=== PATIENT | female | born 1980 | race Caucasian/White ===

== ENCOUNTER → 2017-08-27 | Outpatient (CLI) | payer BC ==
--- NOTE | 2017-08-28 07:42 | RADIOLOGY REPORT (SQ) ---
EXAM DESCRIPTION: MRI RT LOWER EXTREMITY WITHOUT COMPLETED DATE/TIME: 08/27/2017 4:59 pm REASON FOR STUDY: SPONTANEOUS RUPTURE OF FLEXOR TENDONS RT ANKLE FOOT M66.371 SPONTANEOUS RUPTURE O F FLEXOR TENDONS, RIGHT ANKLE A COMPARISON: Right ankle films 11/28/2013 TECHNIQUE: Right ankle images acquired and stored on PACS. Multiplanar images include fat sensitive sequences as T1, fluid sensitive sequences as FST2/STIR, cartilage sensitive sequences as FSPD, and g radient echo sequences. LIMITATIONS: There is mild metallic artifact along the distal medial malleolus from remote prior elvis dware and removal. There is artifact throughout the distal fibula from a fixation plate and multiple screws. FINDINGS: BONE MARROW: Marrow edema is present throughout the navicular, cuboid, middle and lateral cuneiform bones likely indicating bone contusion. There is joint space narrowing at the talonavicula r and intertarsal joints with mild bony spurring from osteoarthritis. EFFUSIONS: No subtalar or tibiotalar effusions. No loose bodies. OSSEOUS ARTICULATIONS: Marrow edema is present throughout the navicular, cuboid, middle and lateral c uneiform bones likely indicating bone contusion. There is joint space narrowing at the talonavicular and intertarsal joints with mild bony spurring from osteoarthritis. TALAR DOME AND TIBIAL PLAFOND: Chondromalacia along the anterior aspect of the tibial plafond. Small subcortical cyst, medial talar dome coronal image 20 and sagittal image 11. No articular surface co llapse. ACHILLES TENDON: Intact without partial or full-thickness tear. No adjacent bursal fluid or edema. TIBIALIS ANTERIOR TENDON: Intact without edema at the 1st MT attachment. TIBIALIS POSTERIOR TENDON: Normal morphology and no edema at the navicular attachment. No tendon jean baptiste th fluid. FLEXOR HALLUCIS LONGUS AND FLEXOR DIGITORUM TENDONS: Normal morphology and no tendon sheath fluid. No edema of the os trigonum. PERONEUS LONGUS AND BREVIS TENDON: Normal morphology and no tendon sheath fluid. No subluxation. ATFL, CFL, PTFL: Metallic artifact along the distal fibula from hardware. Anterior and posterior tib iofibular and fibulotalar ligaments are not well seen. Calcaneofibular ligament is not well seen. DELTOID LIGAMENT: Visualized components intact. TARSAL TUNNEL: No masses. No muscle atrophy. SINUS TARSI: No fluid. No reactive marrow edema or erosions. PLANTAR FASCIA: No signal alteration or tear. Moderate-sized plantar calcaneal spur. ADJACENT SOFT TISSUES: No masses. OTHER: Healed distal tibial fracture with hardware. Hardware at the medial malleolus has been remove d. 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 Osteo arthritis at the intertarsal joints with marrow edema in the bony structures as above. Old bimalleolar fracture. Hardware from the medial malleolus has been removed. TECHNICAL DOCUMENTATION: JOB ID: [id number] [employer]- All Rights Reserved Reading location - IP/workstation name: [email or web address]
== END ==
LOC: RAD 15:46
PROVIDERS: ATTEND Podiatrist
DX: M66.371 Spontaneous rupture of flexor tendons, right ankle and foot (principal); M19.071 Primary osteoarthritis, right ankle and foot; M77.31 Calcaneal spur, right foot

== ENCOUNTER → 2018-03-23 | Outpatient (CLI) | payer BC ==
--- NOTE | 2018-03-23 10:42 | WOMENS IMAGING REPORT ---
EXAM DESCRIPTION: U/S ABDOMEN LIMITED COMPLETED DATE/TIME: 03/23/2018 10:12 am REASON FOR STUDY: NAUSEA R11.0 NAUSEA R10.9 UNSPECIFIED ABDOMINAL PAIN COMPARISON: None. TECHNIQUE: Dynamic and static grayscale images acquired of the abdomen and recorded on PACS. Additio luis selected color Doppler and spectral images recorded. LIMITATIONS: None. FINDINGS: PANCREAS: No masses. Visualized pancreatic duct normal caliber. LIVER: Fatty liver. The liver measures 17.9 cm in length and is mildly prominent in size. LIVER VASCULATURE: Normal directional flow of the main portal vein and hepatic veins. GALLBLADDER: Gallstones. The gallbladder wall measures 1.4 mm, normal wall thickness. No pericholec ystic fluid. ULTRASOUND-DETECTED BANDA'S SIGN: Negative. INTRAHEPATIC DUCTS AND COMMON DUCT: CBD measures 4.5 mm in diameter, normal. The intrahepatic ducts normal caliber. No filling defects. INFERIOR VENA CAVA: Normal flow. AORTA: No aneurysm. RIGHT KIDNEY: The right kidney measures 12.2 x 5.2 x 6.0 cm, normal size. Normal echogenicity. No s olid or suspicious masses. No hydronephrosis. No calcifications. PERITONEAL AND RIGHT PLEURAL SPACE: No ascites or effusions. OTHER: No other significant findings. IMPRESSION: 1. Gallstones. 2. No evidence of biliary obstruction. 3. Fatty liver and mild hepatomegaly. TECHNICAL DOCUMENTATION: JOB ID: [id number] [employer]- All Rights Reserved Reading location - IP/workstation name: [email or web address]
== END ==
LOC: WI 09:24
PROVIDERS: ATTEND Internal Medicine Gastroenterology
DX: K80.80 Other cholelithiasis without obstruction (principal); K76.0 Fatty (change of) liver, not elsewhere classified; R16.0 Hepatomegaly, not elsewhere classified; R10.9 Unspecified abdominal pain; R11.0 Nausea
CPT/HCPCS: 76705